=== PATIENT | female | born 1965 | race American Indian/Alaskan Native ===

== ENCOUNTER 2019-12-01 06:55 | Emergency (ER) | payer SELFPAY ==
[2019-12-01 07:30] VITALS: BP 146/86
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
--- NOTE | 2019-12-01 09:37 | XRay Report ---
LUMBAR SPINE 3 VIEWS INDICATION / CLINICAL INFORMATION: lower back pain. COMPARISON: None available. FINDINGS: No significant skeletal abnormality. Alignment is normal. Signer Name: Fred Rush MD FACWily Signed: 12/01/2019 9:32 AM Workstation Name: [id number]
--- NOTE | 2019-12-01 09:38 | XRay Report ---
XR spine cervical 2-3V HISTORY: neck pain COMPARISON: None. TECHNIQUE: 4 view(s) of the cervical spine obtained. FINDINGS: Vertebrae: Straightening of the cervical spine. No listhesis. Vertebral body heights are preserved. C 1 and C2 are congruent. Odontoid process is intact. Spondylosis:Moderate spondylosis most also C4-C5 and C5-C6 with decreased intervertebral disc space a nd endplate spurring. Soft tissues: No prevertebral soft tissue thickening. IMPRESSION: 1. Moderate C4-C5 and C5-C6 spondylosis. Signer Name: Jaime Gonsalez MD Signed: 12/01/2019 9:34 AM Workstation Name: [id number]
== END 2019-12-01 10:27 | disposition home or self-care (01) ==
LOC: EDSEX → ED 06:55
DX: S16.1XXA Strain of muscle, fascia and tendon at neck level, initial encounter (principal); M62.838 Other muscle spasm; M54.5 Low back pain; Z90.710 Acquired absence of both cervix and uterus; Z79.899 Other long term (current) drug therapy; V49.69XA Unspecified car occupant injured in collision with other motor vehicles in traffic accident, initial encounter; Y92.410 Unspecified street and highway as the place of occurrence of the external cause; Y93.89 Activity, other specified; Y99.8 Other external cause status
CPT/HCPCS: 72040; 72100

== ENCOUNTER 2021-11-05 23:20 | Emergency (ER) | payer SELFPAY ==
--- NOTE | 2021-11-06 08:42 | XRay Report ---
CHEST AND ABDOMINAL SERIES Chest one view: Heart size is normal. The lungs are clear. Two-view abdomen: Scattered gas throughout the abdomen in a nonobstructive fashion. Colonic stool is moderate. No free air or suspicious calcification. IMPRESSION: Unremarkable chest and abdominal series. Signer Name: Jose Ferreira MD Signed: 11/06/2021 8:38 AM Workstation Name: [email or web address]
[2021-11-06 09:04] LABS: Hematocrit 41.7 % (30.3-42.9); Hemoglobin 14.4 gm/dl (10.1-14.3); Mean Corpuscular HGB Conc 34 % (30-34); Mean Corpuscular Volume 90 fl (79-97); Platelet Count 341 K/mm3 (140-440); Red Blood Count 4.65 M/mm3 (3.65-5.03); Red Cell Distribution Width 13.1 % (13.2-15.2)
[2021-11-06 09:28] LABS: Alanine Aminotransferase 18 units/L (7-56); Albumin 4.5 g/dL (3.9-5); BUN/Creatinine Ratio 16; Blood Urea Nitrogen 13 mg/dL (7-17); Calcium 9.6 mg/dL (8.4-10.2); Hemolysis Index 6
[2021-11-06 12:40] LABS: Bacteria,Urine 1+ /HPF (Negative); Mucus,Urine FEW /HPF
--- NOTE | 2021-11-06 12:54 | Cat Scan Report ---
CT ABDOMEN AND PELVIS WITH CONTRAST INDICATION / CLINICAL INFORMATION: abd pain. TECHNIQUE: Axial CT images were obtained through the abdomen and pelvis after Omnipaque 300, 100 cc I V contrast. All CT scans at this location are performed using CT dose reduction for ALARA by means o f automated exposure control. COMPARISON: None available. FINDINGS: LOWER CHEST: No significant abnormality. LIVER: 1.7 cm cyst left hepatic lobe. GALLBLADDER: No significant abnormality. BILE DUCTS: No significant abnormality. PANCREAS: No significant abnormality. SPLEEN: No significant abnormality. ADRENALS: No significant abnormality. RIGHT KIDNEY / URETER: No significant abnormality. LEFT KIDNEY / URETER: No significant abnormality. STOMACH / SMALL BOWEL: No significant abnormality. COLON: No significant abnormality. APPENDIX: No significant abnormality. PERITONEUM: No free fluid. No free air. No fluid collection. LYMPH NODES: No significant adenopathy. VASCULAR STRUCTURES: No significant abnormality. URINARY BLADDER: No significant abnormality. REPRODUCTIVE ORGANS: Previous hysterectomy. ADDITIONAL FINDINGS: None. SKELETAL SYSTEM: No significant abnormality. IMPRESSION: Negative for obstruction or localized inflammation. Signer Name: Jose Ferreira MD Signed: 11/06/2021 12:49 PM Workstation Name: [email or web address]
[2021-11-06 12:55] LABS: Bilirubin,Urine Negative (Negative); Blood,Urine Negative (Negative); Color,Urine Straw (Yellow); Protein,Urine <15 mg/dL mg/dL (Negative); Urobilinogen,Urine < 2.0 mg/dL (<2.0)
--- NOTE | 2021-11-06 13:15 | Emergency Department Report ---
ED Abdominal Pain HPI - General Chief Complaint: Abdominal Pain Stated Complaint: SWELLING NO BOWL MOVEMENT X4DAYS PUI?: No Time Seen by Provider: 11/06/21 09:34 Source: patient Mode of arrival: Ambulatory Limitations: No Limitations - History of Present Illness Initial Comments: 56 yo comes to ER with a/c constipation which she reports is getting worse. She has had no BM in over 4 days. She reports fullness. NO n/v/d. No fever or chills. Does report dec po intake Pt states she drank prune juice for the last several days but took nothing else. Denies use of opiates at home Complaint: abdominal pain -: week(s) Location: diffuse Migration to: no migration Severity: moderate Quality: fullness Consistency: constant Improves With: nothing Worsens With: nothing Associated Symptoms: denies other symptoms, constipation. denies: nausea, vomiting, diarrhea, fever, chills, dysuria, hematemesis, hematochezia, melena, hematuria, anorexia, syncope - Related Data Previous Rx's Medication Instructions Recorded Last Taken Type Ketorolac [Toradol] 10 mg PO Q6H PRN #15 tablet 12/01/19 Unknown Rx methOCARBAMOL [Robaxin TAB] 750 mg PO Q8H PRN #14 tablet 12/01/19 Unknown Rx Docusate Sodium [Colace] 100 mg PO BID #60 capsule 11/06/21 Unknown Rx Magnesium Citrate [Citrate of 300 ml PO NOW #1 bottle 11/06/21 Unknown Rx Magnesia] Polyethylene Glycol 3350 [Miralax] 119 gm PO DAILY #30 11/06/21 Unknown Rx Sennosides [Senna] 8.6 mg PO BID #60 11/06/21 Unknown Rx Allergies Allergy/AdvReac Type Severity Reaction Status Date / Time No Known Allergies Allergy Unverified 12/01/19 07:23 ED Review of Systems ROS: Stated complaint: SWELLING NO BOWL MOVEMENT X4DAYS Other details as noted in HPI Comment: All other systems reviewed and negative ED Past Medical Hx - Surgical History Past Surgical History?: Yes Additional Surgical History: Hysterectomy - Family History Family history: no significant - Social History Smoking Status: Never Smoker Substance Use Type: None - Medications Home Medications: Home Medications Medication Instructions Recorded Confirmed Last Taken Type Ketorolac [Toradol] 10 mg PO Q6H PRN #15 tablet 12/01/19 Unknown Rx methOCARBAMOL [Robaxin TAB] 750 mg PO Q8H PRN #14 tablet 12/01/19 Unknown Rx Docusate Sodium [Colace] 100 mg PO BID #60 capsule 11/06/21 Unknown Rx Magnesium Citrate [Citrate of 300 ml PO NOW #1 bottle 11/06/21 Unknown Rx Magnesia] Polyethylene Glycol 3350 [Miralax] 119 gm PO DAILY #30 11/06/21 Unknown Rx Sennosides [Senna] 8.6 mg PO BID #60 11/06/21 Unknown Rx ED Physical Exam - General Limitations: No Limitations General appearance: alert, in no apparent distress - Head Head exam: Present: atraumatic, normocephalic - Eye Eye exam: Present: normal appearance - ENT ENT exam: Present: mucous membranes moist - Neck Neck exam: Present: normal inspection - Respiratory Respiratory exam: Present: normal lung sounds bilaterally. Absent: respiratory distress - Cardiovascular Cardiovascular Exam: Present: regular rate, normal rhythm. Absent: systolic murmur, diastolic murmur, rubs, gallop - GI/Abdominal GI/Abdominal exam: Present: soft, normal bowel sounds - Extremities Exam Extremities exam: Present: normal inspection - Back Exam Back exam: Present: normal inspection - Neurological Exam Neurological exam: Present: alert, oriented X3 - Psychiatric Psychiatric exam: Present: normal affect, normal mood - Skin Skin exam: Present: warm, dry, intact, normal color. Absent: rash ED Course Vital Signs 11/05/21 11/06/21 23:26 13:40 Temperature 99.0 F 98.2 F Pulse Rate 87 89 Respiratory 18 20 Rate Blood Pressure 150/87 Blood Pressure 148/90 [Left] O2 Sat by Pulse 97 99 Oximetry ED Medical Decision Making - Lab Data Result diagrams: 11/06/21 08:36 11/06/21 08:36 - Radiology Data Radiology results: report reviewed, image reviewed see report - Medical Decision Making Labs 11/06/21 11/06/21 11/06/21 08:36 08:36 11:26 WBC 7.6 RBC 4.65 Hgb 14.4 H Hct 41.7 MCV 90 MCH 31 MCHC 34 RDW 13.1 L Plt Count 341 Sodium 140 Potassium 4.3 Chloride 103.4 Carbon Dioxide 26 Anion Gap 15 BUN 13 Creatinine 0.8 Estimated GFR > 60 BUN/Creatinine Ratio 16 Glucose 133 H Calcium 9.6 Total Bilirubin 0.40 AST 17 ALT 18 Alkaline Phosphatase 115 Total Protein 8.0 Albumin 4.5 Albumin/Globulin Ratio 1.3 Urine Color Straw Urine Turbidity Clear Urine pH 6.0 Ur Specific [place] 1.020 Urine Protein <15 mg/dl Urine Glucose (UA) Negative Urine Ketones Negative Urine Blood Negative Urine Nitrite Negative Ur Reducing Substances Not Reportable Urine Bilirubin Negative Urine Ictotest Not Reportable Urine Urobilinogen < 2.0 Ur Leukocyte Esterase Small Urine WBC (Auto) 1.0 Urine RBC (Auto) 2.0 U Epithel Cells (Auto) 10.0 Urine Bacteria (Auto) 1+ Urine Mucus Few Vital Signs 11/05/21 11/06/21 23:26 13:40 Temperature 99.0 F 98.2 F Pulse Rate 87 89 Respiratory 18 20 Rate Blood Pressure 150/87 Blood Pressure 148/90 [Left] O2 Sat by Pulse 97 99 Oximetry abd exam limited by body habitus but pt has had no n/v/d while in ER She is ambulatory and tolerating po labs noted- WBC normal ua noted xray and CT noted VS remain stable Findings discussed with pt- she will d/c home with senna/colace/miralax and mg citrate. She will also do KS sup/enema. Pt dc home with dc plan of care including diet, meds, follow up and activity. She verbalizes understanding of plan of care. - Differential Diagnosis ro obstruction Critical care attestation.: If time is entered above; I have spent that time in minutes in the direct care of this critically ill patient, excluding procedure time. ED Disposition Clinical Impression: Constipation Disposition: 01 HOME / SELF CARE / HOMELESS Is pt being admited?: No Does the pt Need Aspirin: No Condition: Stable Instructions: Constipation, Adult, Abdominal Pain (ED) Additional Instructions: MEDS ORDERED TODAY-- WITH AN ENEMA TODAY FOLLOW UP WITH PCP CT SCAN NORMAL TODAY Prescriptions: Magnesium Citrate [Citrate of Magnesia] 300 ml PO NOW #1 bottle Docusate Sodium [Colace] 100 mg PO BID #60 capsule Polyethylene Glycol 3350 [Miralax] 119 gm PO DAILY #30 Sennosides [Senna] 8.6 mg PO BID #60 Referrals: LINDA TAYLOR MD [Staff Physician] - 3-5 Days Forms: Work/School Release Form(ED) Time of Disposition: 13:18
[2021-11-06 13:44] VITALS: BP 148/90
== END 2021-11-06 14:00 | disposition home or self-care (01) ==
LOC: ED 23:20
DX: K59.00 Constipation, unspecified (principal)
CPT/HCPCS: 74022; 74177; 99284; Q9967